=== PATIENT | female | born 1950 | race Caucasian/White ===

== ENCOUNTER → 2019-09-07 | Outpatient (CLI) | payer MEDICARE, BC ==
[~2019-09-07] VITALS: Ht 160 cm; Wt 97.5 kg
[~2019-09-07] MED LIST: SINCALIDE 1.95 MCG in IV NORMAL SALINE 50ML 30 ML IV ONE
--- NOTE | 2019-09-07 12:49 | RAD ---
EXAM: Nuclear hepatobiliary scan. HISTORY: Pain. TECHNIQUE: Following intravenous administration of 5.5 mCi Tc 99m Choletec, anterior images of the abdomen were obtained at five minute intervals through one hour. Subsequently, 1.95 CCK was administered and additional images to assess gallbladder ejection fraction were obtained. FINDINGS: There is prompt radiotracer uptake by the liver. No focal defect is seen. There is normal excretion into the biliary tree. The gallbladder is visualized within 20 minutes and there is free flow into the duodenum. The gallbladder ejection fraction is 90%. IMPRESSION: Increased gallbladder ejection fraction of 90%. This can be seen with biliary hyperkinesia. Electronically signed by: Tawnya Lin MD (09/07/2019 12:46 PM) [id number]
== END ==
LOC: NM 11:33
PROVIDERS: ATTEND Internal Medicine Gastroenterology
DX: R10.11 Right upper quadrant pain (principal); F90.8 Attention-deficit hyperactivity disorder, other type
CPT/HCPCS: 78227; A9537; J2805